=== PATIENT | female | born 1950 | race Two or more races ===

== ENCOUNTER → 2025-02-08 | Outpatient (CLI) | payer OTHER ==
[2025-02-08 16:02] LABS: Urine Bacteria None Seen /hpf (None Seen)
[2025-02-08 16:07] LABS: Basophils # (auto) 0 10 ^3/uL (0-0.2); Basophils % (auto) 0.8 % (0.0-2.0); Eosinophils # (auto) 0.1 10 ^3/uL (0-0.8); Eosinophils % (auto) 1.5 % (0.0-7.0); Hemoglobin 13.4 g/dL (12.2-16.2); Lymphocytes % (auto) 40.8 % (10.0-50.0); Mean Corpuscular Hemoglobin 31.3 pg (28.0-32.0); Mean Corpuscular Hgb Conc. 33.6 g/dL (32.0-36.0); Mean Corpuscular Volume 93.1 fL (80.0-100.0); Monocytes # (auto) 0.4 10 ^3/uL (0-1.3); Monocytes % (auto) 8.5 % (0.0-12.0); Neutrophils # (auto) 2.4 10 ^3/uL (1.6-8.6); Neutrophils % (auto) 48.4 % (37.0-80.0); Nucleated Red Blood Cells % 0.1 %; Platelet Count (auto) 190 10^3/uL (140-450); Red Cell Distribution Width 12.9 % (11.8-14.3)
[2025-02-08 16:46] LABS: Alanine Aminotransferase 21 U/L (7-40); Albumin 4.1 g/dL (3.2-4.8); Alkaline Phosphatase 162 U/L (46-116); Anion Gap 5 (5-15); Aspartate Aminotransferase 21 U/L (13-40); BUN/Creatinine Ratio 16.4 (10.0-20.0); Bilirubin, Total 0.4 mg/dL (0.2-1.0); Blood Urea Nitrogen 11 mg/dL (9-23); Calcium 9.7 mg/dL (8.7-10.4); Carbon Dioxide 29 mmol/L (20-31); Chloride 109 mmol/L (98-107); Cholesterol 131 mg/dL (< 200); Glucose 116 mg/dL (74-106); HDL Cholesterol 47 mg/dL (40-59); LDL Cholesterol 65 mg/dL (< 100); Potassium 4.7 mmol/L (3.5-5.1); Sodium 143 mmol/L (136-145); Total Protein 6.3 g/dL (5.7-8.2)
[2025-02-08 16:47] LABS: Triglycerides 212 mg/dL (< 150)
[2025-02-08 16:48] LABS: T3 Total 2.73 ng/mL (0.60-1.81)
[2025-02-08 16:49] LABS: Free T4 (Free Thyroxine) 2.89 ng/dL (0.89-1.76)
[2025-02-08 16:55] LABS: Uric Acid 4.5 mg/dL (3.1-7.8)
[2025-02-08 16:59] LABS: Urine Amorphous Crystal FEW /hpf (None Seen); Urine Blood Negative /uL (Negative); Urine Clarity Turbid (Clear); Urine Color Yellow (Yellow); Urine Protein, UAD TRACE (Negative); Urine Specific Gravity 1.019 (1.001-1.035); Urine Squamous Epithelial Cell FEW /hpf (<5); Urine Urobilinogen Normal (Negative); Urine WBC 11 /HPF (0-5); Urine pH 8.5 (5.0-9.0)
== END | disposition home or self-care (01) ==
LOC: LAB 15:47
PROVIDERS: ATTEND Family Medicine
DX: Z12.11 Encounter for screening for malignant neoplasm of colon (principal); R94.6 Abnormal results of thyroid function studies; R63.4 Abnormal weight loss; Z90.12 Acquired absence of left breast and nipple; Z85.3 Personal history of malignant neoplasm of breast; Z86.39 Personal history of other endocrine, nutritional and metabolic disease; E55.9 Vitamin D deficiency, unspecified; E78.5 Hyperlipidemia, unspecified
CPT/HCPCS: 36415; 80053; 80061; 81001; 82270; 82306; 83036; 84439; 84443; 84480; 84550; 85025

== ENCOUNTER 2025-05-24 14:57 | Outpatient (CLI) | payer OTHER ==
[2025-05-24 15:35] LABS: Alanine Aminotransferase 20 U/L (7-40); Albumin 4.1 g/dL (3.2-4.8); Anion Gap 2 (5-15); BUN/Creatinine Ratio 12.5 (10.0-20.0); Calcium 9.8 mg/dL (8.7-10.4); Carbon Dioxide 29 mmol/L (20-31); Cholesterol 125 mg/dL (< 200); Glucose 104 mg/dL (74-106); Potassium 4.5 mmol/L (3.5-5.1); Sodium 143 mmol/L (136-145); Total Protein 6.2 g/dL (5.7-8.2); Triglycerides 70 mg/dL (< 150)
[2025-05-24 15:36] LABS: Bilirubin, Total 0.6 mg/dL (0.2-1.0); HDL Cholesterol 48 mg/dL (40-59)
[2025-05-24 15:38] LABS: Alkaline Phosphatase 165 U/L (46-116); Blood Urea Nitrogen 7 mg/dL (9-23); Chloride 112 mmol/L (98-107)
[2025-05-24 16:07] LABS: Free T4 (Free Thyroxine) 1.83 ng/dL (0.89-1.76)
== END 2025-05-24 17:55 | disposition home or self-care (01) ==
LOC: LAB 14:57
PROVIDERS: ATTEND Family Medicine
DX: E78.1 Pure hyperglyceridemia (principal); E78.6 Lipoprotein deficiency; E87.8 Other disorders of electrolyte and fluid balance, not elsewhere classified; E05.90 Thyrotoxicosis, unspecified without thyrotoxic crisis or storm; R63.4 Abnormal weight loss; Z86.39 Personal history of other endocrine, nutritional and metabolic disease
CPT/HCPCS: 36415; 80053; 80061; 84439; 84443; 84480

== ENCOUNTER → 2025-09-27 | Outpatient (CLI) | payer OTHER ==
[2025-09-27 16:12] LABS: Potassium 4.5 mmol/L (3.5-5.1); Sodium 142.0 mmol/L (136-145)
[2025-09-27 16:13] LABS: Anion Gap 5.0 (5-15); Carbon Dioxide 26.0 mmol/L (20-31)
[2025-09-27 16:14] LABS: Calcium 9.1 mg/dL (8.7-10.4)
[2025-09-27 16:15] LABS: Chloride 111.0 mmol/L (98-107)
[2025-09-27 16:18] LABS: BUN/Creatinine Ratio 12.5 (10.0-20.0)
[2025-09-27 16:20] LABS: Albumin 4.0 g/dL (3.2-4.8)
[2025-09-27 16:22] LABS: Free T3 5.1 pg/mL (2.3-4.2)
[2025-09-27 16:24] LABS: Free T4 (Free Thyroxine) 1.41 ng/dL (0.89-1.76)
[2025-09-27 16:25] LABS: Blood Urea Nitrogen 7.0 mg/dL (9-23); Glucose 123.0 mg/dL (74-106)
== END | disposition home or self-care (01) ==
LOC: LAB 15:11
PROVIDERS: ATTEND Family Medicine
DX: E04.1 Nontoxic single thyroid nodule (principal); E05.90 Thyrotoxicosis, unspecified without thyrotoxic crisis or storm; E87.8 Other disorders of electrolyte and fluid balance, not elsewhere classified; R13.10 Dysphagia, unspecified
CPT/HCPCS: 36415; 80069; 84144; 84439; 84443; 84480; 84481